=== PATIENT | female | born 1945 | race Caucasian/White ===

== ENCOUNTER 2017-01-29 20:13 | Inpatient (IN) | payer OTHER, MEDICAID ==
[~2017-01-29] VITALS: Ht 147.3 cm; Wt 58.1 kg
[~2017-01-29 20:13] MED LIST: ALENDRONATE SOD70 M2 PO; ANTIVERT12.5 MG PO; ARICEPT5 MG PO; ASPIRIN EC81 M1 PO; DOCUSATE SOD100 M1 PO; LAC PO; LISINOPRIL40 MG PO; MAC100 PO
--- NOTE | 2017-01-29 20:39 | NUR ---
PT AMBULATED TO RM 12. PENDING MD EUGENE.
--- NOTE | 2017-01-29 21:01 | NUR ---
PT IN ED FOR CO HIGH BP, PT STATED HER SISTER TOOK HER BP AT HOME AND IT WAS HIGH. PT A;SO REPORT CP IN STERNAL REGION OF 4/10 AND NON RADIATING. PT IT AAO4, BREATHING EVEN AND UNLABORED, NAD NOTED. PT SPEAKING CLEARLY, SISTER AT BEDSIDE
[2017-01-29 21:05] LABS: BASOPHIL % 0.5 % (0-2); PLATELET COUNT 254 x10^3mcL (130-400); RED CELL DISTRIBUTION WIDTH 13.9 % (11.5-14.5)
[2017-01-29 21:10] LABS: CARBON DIOXIDE 32.3 mmol/L (21-32); CHLORIDE SERUM 99 mmol/L (98-107); CREATININE SERUM 0.8 mg/dL (0.6-1.0); GLUCOSE SERUM 96 mg/dL (74-106); POTASSIUM SERUM 3.7 mmol/L (3.5-5.1); SODIUM SERUM 137 mmol/L (136-145)
[2017-01-29 21:16] LABS: ALBUMIN 3.6 g/dL (3.4-5.0); ALKALINE PHOSPHATASE 77 U/L (46-116); ALT/SGPT 31 U/L (14-59); AST/SGOT 25 U/L (15-37); BILIRUBIN TOTAL 0.4 mg/dL (0.20-1.00); TOTAL PROTEIN, SERUM 8.1 g/dL (6.4-8.2)
[2017-01-29 21:37] LABS: CK-MB 1.4 ng/mL (0-3.6)
--- NOTE | 2017-01-29 22:09 | NUR ---
PT AAO4, BREATHING EVEN AND UNLABORED, NAD NOTED. SISTER CONTINUES TO BE AT BEDSIDE, NO CO PAIN AT THIS TIME
--- NOTE | 2017-01-29 22:47 | NUR ---
PT IN BED, REQUESTED AT BLANKET AND PROVIDED WITH ONE. NAD NOTED, RESP EVEN AND UNLABORED
[2017-01-29] MEDS ORDERED: NAMENDA10 M2 PO (23:07)
[2017-01-29] MEDS ORDERED: CARVEDILOL3.125 M1 PO (23:08)
[2017-01-29] MEDS ORDERED: NEU300 PO (23:08)
--- NOTE | 2017-01-29 23:41 | NUR ---
PT IN BEW WITH EYES CLOSED; BREATHING EVEN AND UNLABORED. EASILY AROUSED, NO C/O PAIN AT THIS TIME
[2017-01-30 00:45] LABS: CHOLESTEROL/HDL RATIO 3.1; MAGNESIUM 2.1 mg/dL (1.8-2.4); PHOSPHOROUS 3.6 mg/dL (2.5-4.9)
[2017-01-30 00:47] LABS: T3 TOTAL 1.27 ng/mL
--- NOTE | 2017-01-30 00:54 | NUR ---
PT IN BED SLEEPING, BREATHING EVEN AND UNLABORED; NAD NOTED AT THIS TIME
[2017-01-30 00:55] LABS: FREE T4 1.18 ng/dL (0.76-1.46); FREE THYROXINE INDEX 2.7 ug/dL (1.4-4.5); T4(THYROXINE) 7.9 ug/dL (4.7-13.3)
--- NOTE | 2017-01-30 02:28 | NUR ---
PT IN BED WITH EYES CLOSED; BREATHING IS EVEN AND UNLABORED, NAD NOTED
--- NOTE | 2017-01-30 03:21 | NUR ---
REPORT GIVEN TO MAIKOL GOETZ FOR CONTINUITY OF CARE
[2017-01-30 04:08] VITALS: BP 124/73
--- NOTE | 2017-01-30 04:21 | NUR ---
RECEIVED PT FROM ED, NO ACUTE DISTRESS. A/O X4. TELE #15 SHOWING SINUS BRADYCARDIA, DENIES CHEST PAIN AT THIS TIME. PULSES PALPABLE IN ALL EXTREMITIES, NO EDEMA NOTED. LUNG SOUNDS CTA BILATERALLY. BOWEL SOUNDS ACTIVE, LAST BM 01/29/17. VOIDING WELL. AMBULATORY. SKIN INTACT. STATES HEADACHE, PAIN 01/13, WILL MEDICATE PER EMAR. IV PATENT AND INTACT. BED IN LOWEST POSITION, SIDE RAILS UP X2, SCDS IN PLACE, CALL LIGHT WITHIN REACH. ORIENTED PT TO ROOM. WILL CONTINUE TO MONITOR.
[2017-01-30 04:48] LABS: BASOPHIL % 0.3 % (0-2); PLATELET COUNT 199 x10^3mcL (130-400); RED CELL DISTRIBUTION WIDTH 13.5 % (11.5-14.5)
[2017-01-30 05:05] LABS: CALCIUM 8.1 mg/dL (8.5-10.1); CARBON DIOXIDE 31.8 mmol/L (21-32); CHLORIDE SERUM 106 mmol/L (98-107); CREATININE SERUM 0.7 mg/dL (0.6-1.0); GLUCOSE SERUM 107 mg/dL (74-106); PHOSPHOROUS 3.2 mg/dL (2.5-4.9); SODIUM SERUM 139 mmol/L (136-145)
[2017-01-30 05:14] LABS: UA SPECIFIC GRAVITY <=1.005 (1.005-1.035); microscopic required? YES; urine erythrocyte TRACE (NEGATIVE)
--- NOTE | 2017-01-30 06:27 | NUR ---
PT SLEPT PERIODICALLY THROUGHOUT NIGHT. NO ACUTE DISTRESS. ALL NEEDS MET AND ATTENDED TO. NO SIGNIFICANT CHANGES. MEDICATED PAIN PER EMAR. IV PATENT AND INTACT. BED IN LOWEST POSITION, SIDE RAILS UP X2, SCDS IN PLACE, CALL LIGHT WITHIN REACH. WILL ENDORSE CARE TO ONCOMING NURSE.
--- NOTE | 2017-01-30 07:50 | NUR ---
RECEIVED THE PATIENT AWAKE AND ORIENTED TO PERSON, PLACE AND TIME. DENIED SHORTNESS OF BREATH OR PAIN AT THIS TIME. IVF NS VIA H/L TO LAC. TELE # 15 READS SINUS BRADYCARDIA. CALL LIGHT WITHIN REACH. SIDE RAILS UP X3. CONTINUE TO MONITOR.
--- NOTE | 2017-01-30 08:55 | NUR ---
DR. LEOS AND THE TEAM WERE MAKING ROUND TO SEE THE PATIENT. THE CARE PLAN WAS EXPLAINED TO THE PATIENT AND THE PATIENT VERBALIZED UNDERSTANDING.
[2017-01-30 09:41] VITALS: BP 144/77
[2017-01-30 13:35] VITALS: BP 127/62
[2017-01-30] MEDS ORDERED: LIPI10 PO (14:22)
[2017-01-30 15:36] VITALS: BP 127/62
[2017-01-30] MEDS ORDERED: ASPIR 8181 MG (15:39)
--- NOTE | 2017-01-30 16:11 | NUR ---
DISCHARGE INSTRUCTION AND PRESCRIPTION WERE EXPLAINED AND HANDED TO THE PATIENT. THE CONCERNS WERE ADDRESSED AND THE PATIENT VERBALIZED UNDERSTANDING. H/L WAS REMOVED WITH CATH INTACT. TELE AND ID BAND WERE REMOVED. THE PATIENT IS WAITING FOR A RIDE.
--- NOTE | 2017-01-30 16:16 | NUR ---
THE PATIENT WAS TAKEN TO THE DISCHARGE OFFICE IN STABLE CONDITION. ALL BELONGINGS WERE SENT HOME WITH THE PATIENT UPON DISCHARGE.
== END 2017-01-30 16:21 | disposition home or self-care (01) | DRG 205 ==
LOC: ED 20:13 → DU 23:07
PROVIDERS: Emergency Medicine; ADMIT Family Medicine
DX: M94.0 Chondrocostal junction syndrome [Tietze] (principal); N17.0 Acute kidney failure with tubular necrosis; I16.0 Hypertensive urgency; E78.5 Hyperlipidemia, unspecified; Z79.82 Long term (current) use of aspirin; G30.9 Alzheimer's disease, unspecified; F02.80 Dementia in other diseases classified elsewhere, unspecified severity, without behavioral disturbance, psychotic disturbance, mood disturbance, and anxiety
CPT/HCPCS: 83880; 84439; J7030; Q0092

== ENCOUNTER 2017-02-03 01:23 | Observation (INO) | payer OTHER, MEDICAID ==
[~2017-02-03] VITALS: Ht 147.3 cm; Wt 57.2 kg
[~2017-02-03 01:23] MED LIST changes: +ASPIR 8181 MG; +CARVEDILOL3.125 M1 PO; +LIPI10 PO; +NAMENDA10 M2 PO; +NEU300 PO
[2017-02-03 02:28] LABS: PLATELET COUNT 242 x10^3mcL (130-400); RED CELL DISTRIBUTION WIDTH 12.7 % (11.5-14.5)
[2017-02-03 02:32] LABS: BASOPHIL % 0.8 % (0-2); CALCIUM 8.9 mg/dL (8.5-10.1); CARBON DIOXIDE 29.3 mmol/L (21-32); CHLORIDE SERUM 103 mmol/L (98-107); CREATININE SERUM 0.8 mg/dL (0.6-1.0); GLUCOSE SERUM 111 mg/dL (74-106); POTASSIUM SERUM 3.8 mmol/L (3.5-5.1); SODIUM SERUM 140 mmol/L (136-145)
[2017-02-03 02:38] LABS: ALKALINE PHOSPHATASE 75 U/L (46-116); ALT/SGPT 31 U/L (14-59); AST/SGOT 23 U/L (15-37); BILIRUBIN TOTAL 0.5 mg/dL (0.20-1.00); TOTAL PROTEIN, SERUM 7.1 g/dL (6.4-8.2)
[2017-02-03 02:40] LABS: ALBUMIN 3.3 g/dL (3.4-5.0)
[2017-02-03 03:00] LABS: CK-MB 1.2 ng/mL (0-3.6)
[2017-02-03 07:40] LABS: AMYLASE 101 U/L (25-115); LIPASE 246 IU/L (73-393)
[2017-02-03 12:05] VITALS: BP 128/63
[2017-02-03 12:17] LABS: CHOLESTEROL/HDL RATIO 2.4
[2017-02-03 12:55] VITALS: BP 128/72
[2017-02-03 13:27] VITALS: BP 150/68
[2017-02-03 17:30] VITALS: BP 147/69
[2017-02-03 18:53] LABS: microscopic required? NO
[2017-02-03 19:20] LABS: UA SPECIFIC GRAVITY <=1.005 (1.005-1.035); urine erythrocyte NEGATIVE (NEGATIVE)
[2017-02-03 21:01] VITALS: BP 131/65
[2017-02-04 05:52] VITALS: BP 141/88
[2017-02-04 06:55] LABS: BASOPHIL % 0.4 % (0-2); PLATELET COUNT 202 x10^3mcL (130-400); RED CELL DISTRIBUTION WIDTH 13.6 % (11.5-14.5)
[2017-02-04 07:37] LABS: CALCIUM 8.3 mg/dL (8.5-10.1); CARBON DIOXIDE 28.2 mmol/L (21-32); CHLORIDE SERUM 107 mmol/L (98-107); CREATININE SERUM 0.7 mg/dL (0.6-1.0); GLUCOSE SERUM 81 mg/dL (74-106); PHOSPHOROUS 3.3 mg/dL (2.5-4.9); SODIUM SERUM 142 mmol/L (136-145)
[2017-02-04 09:41] VITALS: BP 172/86
[2017-02-04 10:14] VITALS: Ht 147.3 cm; Wt 57.2 kg
[2017-02-04 10:41] VITALS: BP 154/75
[2017-02-04 10:43] VITALS: BP 154/75
== END 2017-02-04 12:10 | disposition home or self-care (01) | DRG 304 ==
LOC: ED 01:23 → DU 06:07
PROVIDERS: Emergency Medicine; Family Medicine; ADMIT Family Medicine
DX: I16.0 Hypertensive urgency (principal); I50.33 Acute on chronic diastolic (congestive) heart failure; N17.0 Acute kidney failure with tubular necrosis; E44.0 Moderate protein-calorie malnutrition; I11.0 Hypertensive heart disease with heart failure; G30.9 Alzheimer's disease, unspecified; F02.80 Dementia in other diseases classified elsewhere, unspecified severity, without behavioral disturbance, psychotic disturbance, mood disturbance, and anxiety; M81.0 Age-related osteoporosis without current pathological fracture
CPT/HCPCS: 83880; G0378; J0696; J7030; Q0092